=== PATIENT | male | born 2000 | race African-American/Black ===

== ENCOUNTER 2019-02-02 09:46 | Emergency (ER) | payer OTHER ==
[2019-02-02 09:50] VITALS: BP 132/92; PULSE 88; TEMP 98.1; BMI 25.8
--- NOTE | 2019-02-02 10:03 | PDOC ---
History of Present Illness - General Chief Complaint: Sore Throat Stated Complaint: SORE THORAT Time Seen by Provider: 02/02/19 09:50 History Source: Patient Exam Limitations: No Limitations Past History - Past Medical History Allergies/Adverse Reactions: Allergies Allergy/AdvReac Type Severity Reaction Status Date / Time No Known Allergies Allergy Verified 02/02/19 09:50 Home Medications: Ambulatory Orders NK [No Known Home Medication] 02/02/19 COPD: No - Suicide/Smoking/Psychosocial Hx Smoking History: Never smoked *Physical Exam - Vital Signs Last Vital Signs Temp Pulse Resp BP Pulse Ox 98.1 F 88 18 132/92 98 02/02/19 09:48 02/02/19 09:48 02/02/19 09:48 02/02/19 09:48 02/02/19 09:48 - Physical Exam General Appearance: No: Apparent Distress HEENT: positive: Normal Voice, Nasal Congestion (mild L nare). negative: Muffled/Hoarse voice, Pharyngeal Erythema, Tonsillar Exudate, Tonsillar Erythema , Rhinorrhea, Sinus Tenderness Respiratory/Chest: positive: Lungs Clear, Normal Breath Sounds. negative: Respiratory Distress Cardiovascular: positive: Regular Rhythm, Regular Rate, S1, S2. negative: Murmur Gastrointestinal/Abdominal: positive: Normal Bowel Sounds, Soft. negative: Tender, Distended, Guarding, Rebound Integumentary: positive: Normal Color Neurologic: positive: Alert, Normal Mood/Affect Medical Decision Making - Medical Decision Making 19 y/o M with hx of scoliosis presents with throat irritation x 3days which can lead to mild dry cough. Mentions had subjective fever 3 days ago but nothing since then. Denies ear pain, rhinorrhea, congestion, postnasal drip, sneezing, sob, cp, abd pain, n/v/d. Likely viral URI Supportive care discussed 02/02/19 10:04 *DC/Admit/Observation/Transfer Diagnosis at time of Disposition: Viral URI - Discharge Dispostion Disposition: HOME Condition at time of disposition: Stable Decision to Admit order: No - Referrals - Patient Instructions Printed Discharge Instructions: DI for Viral Upper Respiratory Infection -- Adult Additional Instructions: Thank you for choosing [facility]. It was a pleasure taking care of you. Recommend using a Nedi-Pot or saline nasal spray to help with your congestion Also recommend salt water gargles to help with throat irritation Follow-up with your doctor in 2 days Return to the Emergency Department if your symptoms worsen or persist or have other concerning symptoms. - Post Discharge Activity
== END 2019-02-02 10:08 | disposition home or self-care (01) ==
LOC: JERFT 09:46
DX: J06.9 Acute upper respiratory infection, unspecified (principal); B97.89 Other viral agents as the cause of diseases classified elsewhere
CPT/HCPCS: 99281-25